=== PATIENT | male | born 1950 | race Caucasian/White ===

== ENCOUNTER 2021-01-16 09:31 | Emergency (ER) | payer MEDICARE, OTHER ==
[~2021-01-16] VITALS: Ht 177.8 cm; Wt 113.4 kg
[~2021-01-16 09:31] MED LIST: HCTZ; HYDCHL12.5; LISINOPRIL; METOPROLOL; Omeprazole20 M1 PO; VERA80; VERAPAMIL
[2021-01-16] MEDS ORDERED: SPIR25 PO (09:46)
[2021-01-16] MEDS ORDERED: OMEPRAZOLE MAGN20 M1 PO (09:46)
[2021-01-16] MEDS ORDERED: CHLO25B PO (09:47)
[2021-01-16] MEDS ORDERED: Prinivil10 MG PO (09:47)
[2021-01-16] MEDS ORDERED: METO100 PO (09:47)
[2021-01-16] MEDS ORDERED: Zestril30 MG PO (09:47)
[2021-01-16] MEDS ORDERED: ATOR10 PO (09:47)
[2021-01-16] MEDS ORDERED: ASPI81CH PO (09:48)
[2021-01-16] MEDS ORDERED: Glucophage Xr750 MG PO (09:48)
[2021-01-16] MEDS ORDERED: Verapamil HCl360 MG PO (09:48)
[2021-01-16] MEDS ORDERED: Norco 10-325 T1 EACH PO (10:58)
[2021-01-16] MEDS ORDERED: CEPH500 PO (10:58)
== END 2021-01-16 11:19 | disposition home or self-care (01) ==
LOC: ER 09:31
DX: S62.630A Displaced fracture of distal phalanx of right index finger, initial encounter for closed fracture (principal); E11.9 Type 2 diabetes mellitus without complications; Z23 Encounter for immunization; Z88.1 Allergy status to other antibiotic agents; Z79.82 Long term (current) use of aspirin; W20.8XXA Other cause of strike by thrown, projected or falling object, initial encounter
CPT/HCPCS: 73140; 90471; 90714; 99283-25

== ENCOUNTER → 2024-05-10 | Outpatient (CLI) | payer OTHER ==
[~2024-05-10] MED LIST changes: +ASPI81CH PO; +ATOR10 PO; +CEPH500 PO; +CHLO25B PO; +Glucophage Xr750 MG PO; +METO100 PO; +Norco 10-325 T1 EACH PO; +OMEPRAZOLE MAGN20 M1 PO; +Prinivil10 MG PO; +SPIR25 PO; +Verapamil HCl360 MG PO; +Zestril30 MG PO
[2024-05-10 10:09] LABS: BASOPHILS ABSOLUTE AUTO 0.04 K/mm3 (0.00-0.23); BASOPHILS PERCENT AUTO 1 % (0-2); EOSINOPHILS PERCENT AUTO 1 % (0-6); Hematocrit 42.2 % (37.0-53.0); Hemoglobin 14.5 g/dL (13.5-17.5); IMMATURE GRAN ABSOLUTE AUTO 0.01 K/mm3 (0.00-0.10); IMMATURE GRAN PERCENT AUTO 0 % (0-1); LYMPHOCYTES ABSOLUTE AUTO 0.97 K/mm3 (0.84-5.20); LYMPHOCYTES PERCENT AUTO 11 % (21-46); MONOCYTES ABSOLUTE AUTO 0.93 K/mm3 (0.16-1.47); MONOCYTES PERCENT AUTO 11 % (4-13); Mean Corpuscular HGB 28.6 pg (26.0-34.0); Mean Corpuscular HGB Conc 34.4 g/dL (31.5-36.5); Mean Corpuscular Volume 83 fL (80-100); Mean Platelet Volume 9.4 fL (9.1-12.4); NEUTROPHILS ABSOLUTE AUTO 6.49 K/mm3 (1.96-9.15); NEUTROPHILS PERCENT AUTO 76 % (41-73); Platelet Count 288 K/mm3 (150-400); RDW Coefficient Variation 14.4 % (11.7-14.2); RDW Standard Deviation 43.2 fL (35.1-46.3); Red Blood Cell Count 5.07 M/mm3 (4.30-5.90); White Blood Cell Count 8.54 K/mm3 (4.00-11.30)
[2024-05-10 10:29] LABS: Albumin, Blood 3.6 g/dL (3.4-5.0); Albumin/Globulin Ratio 1.2 (0.8-1.8); Bilirubin, Total 1.2 mg/dL (0.1-1.0); Bun/Creatinine Ratio 16.5 (12.0-20.0); Calcium, Blood 8.8 mg/dL (8.5-10.1); Creatinine, Blood 0.91 mg/dL (0.60-1.20); Potassium, Blood 4.7 mmol/L (3.5-5.5); Thyroid Stimulating Hormone 3.574 uIU/mL (0.360-4.800); Total Protein, Blood 6.6 g/dL (6.4-8.2)
== END ==
LOC: LAB SHORT 10:01 → LAB 10:01
PROVIDERS: Physician Assistant
DX: R06.02 Shortness of breath (principal); R53.83 Other fatigue
CPT/HCPCS: 80053; 83880; 84443; 84484; 85025; 85379

== ENCOUNTER → 2024-06-25 | Outpatient (CLI) | payer OTHER ==
[2024-06-25 09:41] LABS: Albumin, Blood 3.5 g/dL (3.4-5.0); Anion Gap 13 mmol/L (3-11); Blood Urea Nitrogen 20 mg/dL (8-24); Bun/Creatinine Ratio 19.2 (12.0-20.0); CO2, Blood 29 mmol/L (21-32); Calcium, Blood 8.8 mg/dL (8.5-10.1); Chloride, Blood 96 mmol/L (98-108); Creatinine, Blood 1.04 mg/dL (0.60-1.20); Glomerular Filtration Rate 76 (60-); Glucose, Blood 160 mg/dL (70-99); Phosphorus, Blood 3.8 mg/dL (2.5-4.9); Potassium, Blood 4.1 mmol/L (3.5-5.5); Sodium, Blood 134 mmol/L (136-145)
== END | disposition home or self-care (01) ==
LOC: LAB 09:27 → LAB SHORT 09:27
PROVIDERS: Family Medicine
DX: R06.02 Shortness of breath (principal)
CPT/HCPCS: 80069; 83880

== ENCOUNTER 2024-08-19 07:32 | Day surgery (SDC) | payer OTHER ==
[2024-08-19] VITALS (7 sets, daily range): BP systolic 117–160; BP diastolic 68–99
[~2024-08-19] VITALS: Ht 172.7 cm; Wt 101.0 kg
[~2024-08-19 07:32] MED LIST changes: +FARXIGA10 MG PO; +METF500C PO; +TOPROL XL25 MG PO
[2024-08-19] MEDS ORDERED: METO25ER PO (07:59)
[2024-08-19] MEDS ORDERED: REVATIO20 MG PO (08:00)
[2024-08-19] MEDS ORDERED: BUME1 PO (08:04)
[2024-08-19] MEDS ORDERED: NS 250 ML IV ONE (08:38)
[2024-08-19] MEDS ORDERED: Verapamil HCL 2.5 MG/ML 2ML Injection ONE (08:38)
[2024-08-19] MEDS ORDERED: Heparin Sodium 1000 Units/ML 10ML MDV ONE (08:38)
[2024-08-19] MEDS ORDERED: NS 1,000 ML IV ONE (08:38)
[2024-08-19] MEDS ORDERED: Nitroglycerin 2 MG/20 ML BTL ONE (08:38)
[2024-08-19] MEDS ORDERED: Midazolam HCl 1MG / ML 2ML Vial ONE (09:51)
[2024-08-19] MEDS ORDERED: NS 500 ML IV ONE (09:51)
[2024-08-19] MEDS ORDERED: FentaNYL Citrate 50 MCG/ML 2 ML Injection ONE (09:51)
[2024-08-19] MEDS ORDERED: Atropine Sulfate 0.1 MG/ML 10ML SYR ONE (10:10)
== END 2024-08-19 13:47 | disposition home or self-care (01) ==
LOC: MHTC 07:32 → EDSTATUS 07:36 → MHTC 07:37
DX: I27.22 Pulmonary hypertension due to left heart disease (principal); I11.0 Hypertensive heart disease with heart failure; I50.20 Unspecified systolic (congestive) heart failure; E11.9 Type 2 diabetes mellitus without complications; G47.33 Obstructive sleep apnea (adult) (pediatric); E78.5 Hyperlipidemia, unspecified; Z79.82 Long term (current) use of aspirin; Z79.84 Long term (current) use of oral hypoglycemic drugs; Z79.899 Other long term (current) drug therapy; Z88.1 Allergy status to other antibiotic agents; Z87.891 Personal history of nicotine dependence
CPT/HCPCS: 76937; 93456; 99152; C1769; C1887; C1894; J0461; J1644; J2250; J3010; J7030; J7040; J7050; Q9967

== ENCOUNTER 2024-11-23 05:48 | Day surgery (SDC) | payer OTHER ==
[2024-11-23] VITALS (37 sets, daily range): BP systolic 64–118; BP diastolic 46–98
[~2024-11-23] VITALS: Ht 175.3 cm; Wt 100.0 kg
[~2024-11-23 05:48] MED LIST changes: +BUME1 PO; +METO25ER PO; +REVATIO20 MG PO
[2024-11-23] MEDS ORDERED: ELIQUIS5 M2 PO (06:25)
[2024-11-23] MEDS ORDERED: Amiodarone HCl200 MG PO (06:26)
[2024-11-23] MEDS ORDERED: NS 1,000 ML IV ONE (06:45)
[2024-11-23] MEDS ORDERED: propofoL 0 ML IV ONE (06:51)
--- NOTE | 2024-11-23 09:00 | NUR ---
PT'S IN ROOM. DR GIBSON IN ROOM TO SEE PT AND HIS . DISCHARGE INSTRUCTIONS REVIEWED ALL QUESTIONS ANSWERED. LIFE VEST PLACED BACK ON PT. 20 IV DISCONTINUED FROM RIGHT AC WITH INTACT CANNULA. PT ESCORTED OUT VIA WHEELCHAIR ESCORT.
[2024-11-23] MEDS ORDERED: Phenylephrine HCl 100 MCG/ML-NS 10MLSYR (1MG/10ML) IV ONE (09:50)
[2024-11-23] MEDS ORDERED: Propofol 10mg/ml 20 ml Vial (Procedural) IV ONE (09:50)
[2024-11-23] MEDS ORDERED: Atropine Sulfate 0.1 MG/ML 10ML SYR IV ONE (15:26)
[2024-11-23] MEDS ORDERED: Amiodarone HCl 50 MG / ML 3 ML Amp IV ONE (15:29)
== END 2024-11-23 23:00 | disposition home or self-care (01) ==
LOC: MHTC 05:48
DX: I48.0 Paroxysmal atrial fibrillation (principal); I25.10 Atherosclerotic heart disease of native coronary artery without angina pectoris; I25.5 Ischemic cardiomyopathy; E78.5 Hyperlipidemia, unspecified; G47.33 Obstructive sleep apnea (adult) (pediatric); E11.9 Type 2 diabetes mellitus without complications; I10 Essential (primary) hypertension; Z79.82 Long term (current) use of aspirin; Z79.84 Long term (current) use of oral hypoglycemic drugs; Z79.899 Other long term (current) drug therapy; Z95.1 Presence of aortocoronary bypass graft; I97.191 Other postprocedural cardiac functional disturbances following other surgery; I07.1 Rheumatic tricuspid insufficiency; I27.20 Pulmonary hypertension, unspecified
CPT/HCPCS: 92960; 93005; 93010; C8929; J0282; J0461; J2371; J2704; J7030; Q9957